=== PATIENT | female | born 1985 | race Hispanic/Latino ===

== ENCOUNTER 2020-05-24 13:52 | Outpatient (CLI) | payer BC ==
--- NOTE | 2020-05-24 14:35 | RAD ---
EXAM: Chest PA and lateral: HISTORY: Chest wall pain. COMPARISON: None FINDINGS: Heart: Normal cardiac silhouette Aorta: Unremarkable Pulmonary vessels: Normal Costophrenic angles: Costophrenic angles are clear. Lungs: Scattered interstitial opacities. Findings may be due to diminished lung volumes. Pneumothorax: No pneumothorax Osseous structures: No osseous abnormalities IMPRESSION: Diminished lung volumes with interstitial prominence, presumed to represent atelectasis.
== END 2020-05-24 13:53 | disposition home or self-care (01) ==
LOC: BICRAD 13:52
PROVIDERS: ATTEND Physician Assistant Medical
DX: R07.89 Other chest pain (principal); K21.9 Gastro-esophageal reflux disease without esophagitis; R91.8 Other nonspecific abnormal finding of lung field
CPT/HCPCS: 71046